=== PATIENT | male | born 1960 | race Caucasian/White ===

== ENCOUNTER 2016-04-09 06:04 | Emergency (ER) | payer MEDICAID ==
[~2016-04-09] VITALS: Ht 172.7 cm; Wt 77.1 kg
[2016-04-09 07:48] LABS: Urine Bilirubin Negative (Negative); Urine Blood Negative /uL (Negative); Urine Color Yellow (Yellow); Urine Glucose Normal (Normal); Urine Ketone Negative (Negative); Urine Nitrite Negative (Negative); Urine RBC <1 /hpf (0 - 3); Urine Urobilinogen Normal (Negative); Urine pH 6.5 (5.0-8.0)
[2016-04-09 07:55] LABS: Basophils # (auto) 0 uL; Basophils % (auto) 0.4 % (0.0-2.0); Eosinophils # (auto) 0 uL; Eosinophils % (auto) 0.4 % (0.0-7.0); Hematocrit 49.3 % (41.0-53.0); Hemoglobin 15.7 g/dL (13.5-17.5); Lymphocytes # (auto) 1.1 uL; Lymphocytes % (auto) 11.4 % (10.0-50.0); Mean Corpuscular Hemoglobin 27.5 pg (28.0-32.0); Mean Corpuscular Hgb Conc. 31.8 g/dL (32.0-36.0); Mean Corpuscular Volume 86.6 fL (80.0-100.0); Mean Platelet Volume 9.3 fL (7.4-10.4); Monocytes # (auto) 0.5 uL; Monocytes % (auto) 5.4 % (0.0-12.0); Neutrophils # (auto) 8.1 uL; Neutrophils % (auto) 82.4 % (37.0-80.0); Platelet Count (auto) 245 10^3/uL (140-450); Red Cell Distribution Width 13.9 % (11.6-16.0); White Blood Cell 9.9 10^3/uL (4.4-10.8)
[2016-04-09 08:24] LABS: Albumin 4.1 g/dL (3.4-5.0); BUN/Creatinine Ratio 14.4; Bilirubin, Total 0.8 mg/dL (0.2-1.0); Calcium 8.6 mg/dL (8.5-10.1); Potassium 4.2 mmol/L (3.5-5.1); Total Protein 8.4 g/dL (6.4-8.2)
[2016-04-09] MEDS ORDERED: SODIUM CHLORIDE 0.9% 1,000 ML IVB ONE (08:33)
[2016-04-09] MEDS ORDERED: METOCLOPRAMIDE HCL 5MG/ml INJ 2ml VIAL IV ONE (08:45)
[2016-04-09] MEDS ORDERED: KETOROLAC TROMETH 30 MG/ML 1ML VIAL IM ONE (08:45)
[2016-04-09 08:54] LABS: Magnesium 2.3 mg/dL (1.6-2.6)
[2016-04-09 10:14] VITALS: BP 151/83
== END 2016-04-09 10:14 | disposition home or self-care (01) ==
LOC: ER 06:15
DX: R10.9 Unspecified abdominal pain (principal); G89.29 Other chronic pain; M54.9 Dorsalgia, unspecified; I10 Essential (primary) hypertension; R59.1 Generalized enlarged lymph nodes; M47.896 Other spondylosis, lumbar region; E78.5 Hyperlipidemia, unspecified; F12.10 Cannabis abuse, uncomplicated
CPT/HCPCS: 36415; 71020; 74176; 80053; 81001; 83690; 83735; 84443; 85025; 93005; 96361; 96374; 96375; 99285; J1885; J2765

== ENCOUNTER 2016-06-29 20:25 | Emergency (ER) | payer MEDICAID ==
[~2016-06-29] VITALS: Ht 172.7 cm; Wt 77.1 kg
[2016-06-29 23:05] LABS: Basophils # (auto) 0.1 uL; Basophils % (auto) 0.6 % (0.0-2.0); Eosinophils # (auto) 0.1 uL; Eosinophils % (auto) 1.2 % (0.0-7.0); Hematocrit 43.4 % (41.0-53.0); Hemoglobin 14.3 g/dL (13.5-17.5); Lymphocytes # (auto) 1.3 uL; Lymphocytes % (auto) 14.8 % (10.0-50.0); Mean Corpuscular Hemoglobin 27.6 pg (28.0-32.0); Mean Corpuscular Hgb Conc. 33.1 g/dL (32.0-36.0); Mean Corpuscular Volume 83.6 fL (80.0-100.0); Mean Platelet Volume 8.8 fL (7.4-10.4); Monocytes # (auto) 0.6 uL; Monocytes % (auto) 6.4 % (0.0-12.0); Neutrophils # (auto) 6.7 uL; Platelet Count (auto) 291 10^3/uL (140-450); Red Cell Distribution Width 14.2 % (11.6-16.0); White Blood Cell 8.7 10^3/uL (4.4-10.8)
[2016-06-29 23:21] LABS: Albumin 3.8 g/dL (3.4-5.0); BUN/Creatinine Ratio 16.3; Calcium 8.8 mg/dL (8.5-10.1); Potassium 4.1 mmol/L (3.5-5.1)
[2016-06-29 23:24] LABS: Bilirubin, Total 1.4 mg/dL (0.2-1.0); Total Protein 8.1 g/dL (6.4-8.2)
[2016-06-30 06:00] VITALS: BP 168/85
== END 2016-06-30 07:48 | disposition home or self-care (01) ==
LOC: ER 20:32
CPT/HCPCS: 36415; 74176; 80053; 82150; 83690; 85025

== ENCOUNTER 2016-07-15 14:04 | Inpatient (IN) | payer MEDICAID ==
[~2016-07-15] VITALS: Ht 172.7 cm; Wt 67.6 kg
[2016-07-15] MEDS ORDERED: SODIUM CHLORIDE 0.9% 1,000 ML IVB ONE (14:42)
[2016-07-15] MEDS ORDERED: ONDANSETRON HCL 4 MG/2 ML VIAL IV ONE (14:45)
[2016-07-15 15:23] LABS: Basophils # (auto) 0 uL; Eosinophils # (auto) 0 uL; Eosinophils % (auto) 0.3 % (0.0-7.0); Hemoglobin 15.4 g/dL (13.5-17.5); Lymphocytes # (auto) 0.5 uL; Lymphocytes % (auto) 4.2 % (10.0-50.0); Mean Corpuscular Hemoglobin 27.8 pg (28.0-32.0); Mean Corpuscular Hgb Conc. 33.6 g/dL (32.0-36.0); Mean Corpuscular Volume 82.8 fL (80.0-100.0); Mean Platelet Volume 9.3 fL (7.4-10.4); Monocytes # (auto) 0.8 uL; Monocytes % (auto) 6.3 % (0.0-12.0); Neutrophils # (auto) 11.5 uL; Neutrophils % (auto) 89.2 % (37.0-80.0); Platelet Count (auto) 349 10^3/uL (140-450); Red Cell Distribution Width 15.8 % (11.6-16.0); White Blood Cell 12.9 10^3/uL (4.4-10.8)
[2016-07-15 15:51] LABS: INR 1.09 (0.9-1.15); Partial Thromboplastin Time 33.6 sec (22.64-33.71); Prothrombin Time 11.8 sec (9.37-12.3)
[2016-07-15 15:52] LABS: Albumin 3.2 g/dL (3.4-5.0); BUN/Creatinine Ratio 17.7; Bilirubin, Total 10.1 mg/dL (0.2-1.0); Calcium 9.6 mg/dL (8.5-10.1); Magnesium 2.9 mg/dL (1.6-2.6); Potassium 4.7 mmol/L (3.5-5.1)
[2016-07-15] MEDS ORDERED: MORPHINE SULF INJ 2 MG/ML SYRINGE 1ML IV ONE (16:15)
[2016-07-15] MEDS ORDERED: MORPHINE SULF INJ 2 MG/ML SYRINGE 1ML IV PRN (19:30)
[2016-07-15] MEDS ORDERED: cefTRIAXone 1GM/50ML D5W 50 ML IV ONE (19:30)
[2016-07-15] MEDS ORDERED: NITROGLYCERIN 0.4 MG SL TAB SL PRN (19:30)
[2016-07-15] MEDS: SODIUM CHLORIDE 0.9% 1,000 ML IV SCH (20:10)
[2016-07-15] MEDS: LABETALOL HCL 5 MG/ML 4ML SYRINGE IV PRN (20:26)
[2016-07-15 20:35] LABS: Urine Blood TRACE /uL (Negative); Urine Color Yellow (Yellow); Urine Glucose Normal (Normal); Urine Mucus FEW (None Seen); Urine Nitrite Negative (Negative); Urine RBC <1 /hpf (0 - 3); Urine Squamous Epithelial Cell FEW /hpf (<5); Urine Urobilinogen Normal (Negative); Urine pH 5.5 (5.0-8.0)
[2016-07-15 20:46] LABS: Urine Bilirubin Negative (Negative); Urine Ketone 1+ (Negative)
[2016-07-15 21:10] VITALS: BP 153/99
[2016-07-15] MEDS: FAMOTIDINE (10MG/ML) 2ML VL IV SCH (21:28)
[2016-07-15] MEDS: metroNIDAZOLE 500MG/100ML 100 ML IV SCH (21:28)
[2016-07-16] MEDS: MORPHINE SULF INJ 2 MG/ML SYRINGE 1ML IV PRN (02:19)
[2016-07-16] MEDS: ONDANSETRON HCL 4 MG/2 ML VIAL IV PRN (02:20)
[2016-07-16 05:00] VITALS: BP 144/95
[2016-07-16] MEDS: SODIUM CHLORIDE 0.9% 1,000 ML IV SCH ×3 (05:17→20:19)
[2016-07-16] MEDS: metroNIDAZOLE 500MG/100ML 100 ML IV SCH ×3 (05:18→22:09)
[2016-07-16 05:36] LABS: Basophils # (auto) 0 uL; Basophils % (auto) 0.1 % (0.0-2.0); Eosinophils # (auto) 0.1 uL; Eosinophils % (auto) 1.2 % (0.0-7.0); Hematocrit 40.1 % (41.0-53.0); Hemoglobin 13.3 g/dL (13.5-17.5); Lymphocytes # (auto) 0.5 uL; Lymphocytes % (auto) 4.4 % (10.0-50.0); Mean Corpuscular Hgb Conc. 33.3 g/dL (32.0-36.0); Mean Corpuscular Volume 84.2 fL (80.0-100.0); Mean Platelet Volume 9.4 fL (7.4-10.4); Monocytes # (auto) 0.8 uL; Monocytes % (auto) 6.9 % (0.0-12.0); Neutrophils # (auto) 10.7 uL; Neutrophils % (auto) 87.4 % (37.0-80.0); Platelet Count (auto) 310 10^3/uL (140-450); Red Cell Distribution Width 15.7 % (11.6-16.0); White Blood Cell 12.2 10^3/uL (4.4-10.8)
[2016-07-16 05:58] LABS: Albumin 2.7 g/dL (3.4-5.0); BUN/Creatinine Ratio 19.8; Bilirubin, Total 6.8 mg/dL (0.2-1.0); Calcium 8.5 mg/dL (8.5-10.1); Potassium 5.2 mmol/L (3.5-5.1); Total Protein 7.1 g/dL (6.4-8.2)
[2016-07-16 09:00] VITALS: BP 137/92
[2016-07-16] MEDS: FAMOTIDINE (10MG/ML) 2ML VL IV SCH ×2 (09:23→22:09)
[2016-07-16 13:00] VITALS: BP 152/98
[2016-07-16 17:00] VITALS: BP 148/95
[2016-07-16] MEDS: LABETALOL HCL 5 MG/ML 4ML SYRINGE IV PRN (20:46)
[2016-07-16 21:02] VITALS: BP 169/92
[2016-07-16] MEDS: cefTRIAXone 1GM/50ML D5W 50 ML IV SCH (22:06)
[2016-07-17] MEDS: ONDANSETRON HCL 4 MG/2 ML VIAL IV PRN ×4 (01:08→22:58)
[2016-07-17] MEDS: MORPHINE SULF INJ 2 MG/ML SYRINGE 1ML IV PRN ×3 (01:08→22:57)
[2016-07-17] MEDS: SODIUM CHLORIDE 0.9% 1,000 ML IV SCH ×2 (04:39→10:07)
[2016-07-17 05:00] VITALS: BP 142/84
[2016-07-17] MEDS: metroNIDAZOLE 500MG/100ML 100 ML IV SCH ×3 (05:37→22:57)
[2016-07-17 07:37] VITALS: BP 131/85
[2016-07-17 08:00] VITALS: BP 131/85
[2016-07-17] MEDS: FAMOTIDINE (10MG/ML) 2ML VL IV SCH ×2 (09:33→22:57)
[2016-07-17 12:32] VITALS: BP 147/85
[2016-07-17 16:04] VITALS: BP 156/83
[2016-07-17] MEDS ORDERED: D5W/SOD CHL 0.45%/KCL 20MEQ 1,000 ML IV SCH (16:15)
[2016-07-17] MEDS: D5W/SOD CHL 0.45%/KCL 20MEQ 1,000 ML IV SCH (17:19)
[2016-07-17] MEDS: LABETALOL HCL 5 MG/ML 4ML SYRINGE IV PRN (19:01)
[2016-07-17 21:58] VITALS: BP 155/90
[2016-07-17] MEDS: cefTRIAXone 1GM/50ML D5W 50 ML IV SCH (22:57)
[2016-07-18] MEDS: D5W/SOD CHL 0.45%/KCL 20MEQ 1,000 ML IV SCH ×4 (00:15→20:00)
[2016-07-18] MEDS: ONDANSETRON HCL 4 MG/2 ML VIAL IV PRN ×3 (03:45→21:54)
[2016-07-18] MEDS: MORPHINE SULF INJ 2 MG/ML SYRINGE 1ML IV PRN ×2 (03:45→21:54)
[2016-07-18] MEDS: metroNIDAZOLE 500MG/100ML 100 ML IV SCH ×3 (05:47→21:53)
[2016-07-18 05:58] VITALS: BP 142/91
[2016-07-18 06:23] LABS: Albumin 2.6 g/dL (3.4-5.0); BUN/Creatinine Ratio 14.5; Calcium 8.5 mg/dL (8.5-10.1); Potassium 4.2 mmol/L (3.5-5.1)
[2016-07-18 06:27] LABS: Bilirubin, Total 7.3 mg/dL (0.2-1.0); Total Protein 6.5 g/dL (6.4-8.2)
[2016-07-18 06:29] LABS: Basophils # (auto) 0.1 uL; Eosinophils # (auto) 0.2 uL; Eosinophils % (auto) 3.9 % (0.0-7.0); Hematocrit 36.7 % (41.0-53.0); Hemoglobin 12.1 g/dL (13.5-17.5); Lymphocytes # (auto) 0.5 uL; Lymphocytes % (auto) 7.8 % (10.0-50.0); Mean Corpuscular Hemoglobin 28.1 pg (28.0-32.0); Mean Corpuscular Volume 85.3 fL (80.0-100.0); Mean Platelet Volume 10.1 fL (7.4-10.4); Monocytes # (auto) 0.7 uL; Monocytes % (auto) 11.5 % (0.0-12.0); Neutrophils # (auto) 4.9 uL; Neutrophils % (auto) 75.8 % (37.0-80.0); Platelet Count (auto) 305 10^3/uL (140-450); Red Cell Distribution Width 15.7 % (11.6-16.0); White Blood Cell 6.4 10^3/uL (4.4-10.8)
[2016-07-18 08:00] VITALS: BP 137/87
[2016-07-18 09:00] VITALS: BP 137/87
[2016-07-18] MEDS ORDERED: GASTROGRAFIN 120 ML SOL ONE (09:02)
[2016-07-18] MEDS ORDERED: EZ-GAS II GRANULES (RADIOLOGY USE) PO ONE (09:03)
[2016-07-18] MEDS: FAMOTIDINE (10MG/ML) 2ML VL IV SCH ×2 (11:27→21:53)
[2016-07-18 13:00] VITALS: BP 158/95
[2016-07-18 17:00] VITALS: BP 168/92
[2016-07-18] MEDS ORDERED: TPN PER PHARMACY 0 ML IV SCH (17:45)
[2016-07-18] MEDS ORDERED: AMINO ACID INFUSION IN D10W 1,000 ML IV ONE (20:00)
[2016-07-18] MEDS: cefTRIAXone 1GM/50ML D5W 50 ML IV SCH (21:53)
[2016-07-18 22:00] VITALS: BP 154/98
[2016-07-19] MEDS ORDERED: DEXTROSE (50%) 50ML SYRG IV SCH
[2016-07-19] MEDS: ONDANSETRON HCL 4 MG/2 ML VIAL IV PRN ×4 (02:54→22:32)
[2016-07-19] MEDS: MORPHINE SULF INJ 2 MG/ML SYRINGE 1ML IV PRN ×4 (02:54→22:31)
[2016-07-19] MEDS: metroNIDAZOLE 500MG/100ML 100 ML IV SCH (05:53)
[2016-07-19] MEDS: ACCU-CHEK COMFORT CURVE STRIP VI SCH ×5 (05:54→23:46)
[2016-07-19 06:00] VITALS: BP 138/90
[2016-07-19] MEDS: InsuLIN REG 1unit/0.01ml Soln (100units/ml) SC SCH ×5 (06:00→23:46)
[2016-07-19 07:57] LABS: Albumin 2.6 g/dL (3.4-5.0); BUN/Creatinine Ratio 10.4; Bilirubin, Total 7.8 mg/dL (0.2-1.0); Calcium 8.3 mg/dL (8.5-10.1); Magnesium 2.2 mg/dL (1.6-2.6); Phosphorus 2.2 mg/dL (2.5-4.90); Potassium 4.1 mmol/L (3.5-5.1); Total Protein 6.5 g/dL (6.4-8.2)
[2016-07-19 08:00] VITALS: BP_SYST 124; BP_SYST 141; BP_DIAS 82; BP_DIAS 86
[2016-07-19] MEDS: D5W/SOD CHL 0.45%/KCL 20MEQ 1,000 ML IV SCH ×2 (08:30→21:16)
[2016-07-19] MEDS ORDERED: SODIUM PHOSP 20MEQ(15MMOL) IN NS 100 ML IV ONE (08:45)
[2016-07-19] MEDS: FAMOTIDINE (10MG/ML) 2ML VL IV SCH ×2 (10:29→22:31)
[2016-07-19] MEDS ORDERED: ENOXAPARIN SOD 40 MG/0.4 ML SYRINGE SC ONE (11:15)
[2016-07-19 12:00] VITALS: BP 148/90
[2016-07-19 17:00] VITALS: BP 158/98
[2016-07-19] MEDS ORDERED: CLINIMIX PER PHARMACY IV NR ×5 (20:00)
[2016-07-19] MEDS: LABETALOL HCL 5 MG/ML 4ML SYRINGE IV PRN (21:08)
[2016-07-19 22:00] VITALS: BP 163/108
[2016-07-20] VITALS (7 sets, daily range): BP systolic 141–165; BP diastolic 87–103
[2016-07-20] MEDS: MORPHINE SULF INJ 2 MG/ML SYRINGE 1ML IV PRN ×6 (02:54→22:55)
[2016-07-20] MEDS: ONDANSETRON HCL 4 MG/2 ML VIAL IV PRN ×6 (02:54→22:56)
[2016-07-20] MEDS: ACCU-CHEK COMFORT CURVE STRIP VI SCH ×3 (05:39→17:08)
[2016-07-20] MEDS: InsuLIN REG 1unit/0.01ml Soln (100units/ml) SC SCH ×3 (05:40→17:08)
[2016-07-20 06:50] LABS: Albumin 2.6 g/dL (3.4-5.0); BUN/Creatinine Ratio 9.5; Bilirubin, Total 8.3 mg/dL (0.2-1.0); Calcium 8.4 mg/dL (8.5-10.1); Phosphorus 3.3 mg/dL (2.5-4.90); Potassium 3.8 mmol/L (3.5-5.1)
[2016-07-20] MEDS: FAMOTIDINE (10MG/ML) 2ML VL IV SCH ×2 (09:44→21:16)
[2016-07-20] MEDS ORDERED: ENOXAPARIN SOD 40 MG/0.4 ML SYRINGE SC SCH (10:00)
[2016-07-20] MEDS ORDERED: hydrALAZINE HCL 20 MG/ML VL IV PRN (15:30)
[2016-07-20] MEDS ORDERED: CLINIMIX PER PHARMACY IV NR ×8 (20:00)
[2016-07-20] MEDS: D5W/SOD CHL 0.45%/KCL 20MEQ 1,000 ML IV SCH (20:10)
== END 2016-07-20 23:05 | disposition short-term general hospital (02) | DRG 720 ==
LOC: EDBD 14:04 → ER 14:13 → TELE-EAST 14:14 → EAST 07-19 14:48
PROVIDERS: ADMIT Internal Medicine; ATTEND Hospitalist
DX: A41.9 Sepsis, unspecified organism (principal); K56.60 Unspecified intestinal obstruction; K85.90 Acute pancreatitis without necrosis or infection, unspecified; K85.00 Idiopathic acute pancreatitis without necrosis or infection; E44.0 Moderate protein-calorie malnutrition; C25.0 Malignant neoplasm of head of pancreas; N18.4 Chronic kidney disease, stage 4 (severe); K83.1 Obstruction of bile duct; E87.1 Hypo-osmolality and hyponatremia; E83.41 Hypermagnesemia; K31.9 Disease of stomach and duodenum, unspecified; K63.9 Disease of intestine, unspecified; R59.1 Generalized enlarged lymph nodes; E86.0 Dehydration; I12.9 Hypertensive chronic kidney disease with stage 1 through stage 4 chronic kidney disease, or unspecified chronic kidney disease; E78.00 Pure hypercholesterolemia, unspecified; Z80.1 Family history of malignant neoplasm of trachea, bronchus and lung; Z82.49 Family history of ischemic heart disease and other diseases of the circulatory system; Z81.2 Family history of tobacco abuse and dependence; Z68.22 Body mass index [BMI] 22.0-22.9, adult
CPT/HCPCS: 36415; 71010; 74176; 74181; 80053; 81001; 82040; 82150; 82378; 82962; 83605; 83690; 83735; 84100; 84478; 85025; 85610; 85730; 86301; 86304; 87040; 87045; 87086; 87493; 87899; 93005; 93306; 94761; 96361; 96365; 96375; J0696; J1815; J2405; J3490; J7131

== ENCOUNTER 2016-08-21 07:32 | Emergency (ER) | payer MEDICAID ==
[~2016-08-21] VITALS: Ht 172.7 cm; Wt 77.1 kg
[2016-08-21] MEDS ORDERED: SODIUM CHLORIDE 0.9% 1,000 ML IV ONE ×2 (07:54)
[2016-08-21] MEDS ORDERED: HYDROmorphone HCL 2 MG/ML VL IV ONE ×2 (08:15→10:00)
[2016-08-21] MEDS ORDERED: ONDANSETRON HCL 4 MG/2 ML VIAL IV ONE (08:15)
[2016-08-21 09:11] LABS: CONDITION Y; Hematocrit 29.4 % (41.0-53.0); Hemoglobin 9.9 g/dL (13.5-17.5); Mean Corpuscular Hemoglobin 27.6 pg (28.0-32.0); Mean Corpuscular Hgb Conc. 33.5 g/dL (32.0-36.0); Mean Corpuscular Volume 82.4 fL (80.0-100.0); Platelet Count (auto) 425 10^3/uL (140-450); Red Cell Distribution Width 16.3 % (11.6-16.0); SUSPECT SEE PRINTOUT; White Blood Cell 17.1 10^3/uL (4.4-10.8)
[2016-08-21 09:13] LABS: Metamyelocytes % 0; Myelocytes % 0; Promyelocytes % 0; Reactive Lymphocytes 0
[2016-08-21 09:23] LABS: INR 1.01 (0.9-1.15); Partial Thromboplastin Time 32.3 sec (22.64-33.71)
[2016-08-21 09:24] LABS: Platelet Estimate Adequate
[2016-08-21 09:34] LABS: Albumin 1.9 g/dL (3.4-5.0); Amylase 35 U/L (25-115); Anion Gap 8 (5-15); Aspartate Aminotransferase 24 U/L (15-37); Blood Urea Nitrogen 11 mg/dL (7-18); Carbon Dioxide 28 mmol/L (21-32); Chloride 107 mmol/L (98-107); GFR African American 80 mL/min; GFR Non-African American 66 mL/min; Glucose 105 mg/dL (74-106); Potassium 4.5 mmol/L (3.5-5.1); Sodium 143 mmol/L (136-145)
[2016-08-21 09:42] LABS: Alkaline Phosphatase 506 U/L (45-117); Bilirubin, Total 0.9 mg/dL (0.2-1.0); Total Protein 6.7 g/dL (6.4-8.2)
[2016-08-21 10:14] VITALS: BP 139/92
== END 2016-08-21 10:55 | disposition home or self-care (01) ==
LOC: EDBD 07:32 → ER 07:35
DX: G89.29 Other chronic pain (principal); M54.9 Dorsalgia, unspecified; I10 Essential (primary) hypertension; F12.10 Cannabis abuse, uncomplicated
CPT/HCPCS: 36415; 71010; 74176; 80053; 82150; 83605; 83690; 84484; 85007; 85027; 85610; 85730; 87040; 93005; 96361; 96374; 96375; 96376; 99285; J1170; J2405; J7030

== ENCOUNTER 2016-09-12 15:44 | Inpatient (IN) | payer MEDICAID ==
[~2016-09-12] VITALS: Ht 172.7 cm; Wt 67.7 kg
[2016-09-12] MEDS ORDERED: SODIUM CHLORIDE 0.9% 1,000 ML IVB ONE ×2 (17:10→20:13)
[2016-09-12 17:40] LABS: CONDITION Y; Hematocrit 34.7 % (41.0-53.0); Hemoglobin 11.5 g/dL (13.5-17.5); Mean Corpuscular Hemoglobin 27.4 pg (28.0-32.0); Mean Corpuscular Hgb Conc. 33.2 g/dL (32.0-36.0); Mean Corpuscular Volume 82.6 fL (80.0-100.0); Platelet Count (auto) 493 10^3/uL (140-450); Red Cell Distribution Width 17.3 % (11.6-16.0); SUSPECT SEE PRINTOUT; White Blood Cell 28.9 10^3/uL (4.4-10.8)
[2016-09-12 17:46] LABS: Metamyelocytes % 0; Myelocytes % 0; Promyelocytes % 0; Reactive Lymphocytes 0
[2016-09-12 17:50] LABS: Magnesium 2.3 mg/dL (1.6-2.6)
[2016-09-12 17:53] LABS: Albumin 2.9 g/dL (3.4-5.0); BUN/Creatinine Ratio 23.7; Calcium 9.2 mg/dL (8.5-10.1); Potassium 3.8 mmol/L (3.5-5.1)
[2016-09-12 17:56] LABS: Bilirubin, Total 0.8 mg/dL (0.2-1.0)
[2016-09-12 17:57] LABS: INR 1.02 (0.9-1.15); Partial Thromboplastin Time 25.8 sec (22.64-33.71); Prothrombin Time 11.1 sec (9.37-12.3)
[2016-09-12 18:10] LABS: Platelet Estimate Increased
[2016-09-12] MEDS ORDERED: HYDROmorphone HCL 2 MG/ML VL IV ONE (18:30)
[2016-09-12] MEDS ORDERED: ONDANSETRON HCL 4 MG/2 ML VIAL IV ONE (18:30)
[2016-09-12] MEDS ORDERED: metroNIDAZOLE 500MG/100ML 100 ML IV ONE (20:15)
[2016-09-12] MEDS: SODIUM CHLORIDE 0.9% 1,000 ML IV SCH (22:16)
[2016-09-12] MEDS ORDERED: ACETAMINOPHEN 325 MG TAB PO PRN (22:30)
[2016-09-12] MEDS ORDERED: cefTRIAXone 1GM/50ML D5W 50 ML IV ONE (22:30)
[2016-09-12] MEDS ORDERED: predniSONE 20 MG TAB PO ONE (22:30)
[2016-09-12] MEDS ORDERED: TEMAZEPAM 15 MG CAP PO PRN (22:30)
[2016-09-12] MEDS: PRAVASTATIN SODIUM 20 MG TAB PO SCH (22:31)
[2016-09-12] MEDS: SENNA 8.6 MG TAB PO SCH (22:31)
[2016-09-12] MEDS: ONDANSETRON HCL 4 MG/2 ML VIAL IV PRN (22:57)
[2016-09-12] MEDS: HYDROmorphone HCL 2 MG/ML VL IV PRN (22:57)
[2016-09-13] MEDS: HYDROmorphone HCL 2 MG/ML VL IV PRN ×5 (03:28→20:15)
[2016-09-13] MEDS: ONDANSETRON HCL 4 MG/2 ML VIAL IV PRN ×5 (03:28→20:16)
[2016-09-13] MEDS: metroNIDAZOLE 500MG/100ML 100 ML IV SCH ×3 (05:33→21:51)
[2016-09-13] MEDS: cefTRIAXone 1GM/50ML D5W 50 ML IV SCH (09:00)
[2016-09-13] MEDS: predniSONE 20 MG TAB PO SCH (10:00)
[2016-09-13] MEDS: LISINOPRIL 10 MG TAB PO SCH (10:00)
[2016-09-13] MEDS: SODIUM CHLORIDE 0.9% 1,000 ML IV SCH ×2 (10:46→21:52)
[2016-09-13 17:51] VITALS: BP 119/70
[2016-09-13] MEDS: SENNA 8.6 MG TAB PO SCH (21:45)
[2016-09-13] MEDS: PRAVASTATIN SODIUM 20 MG TAB PO SCH (21:46)
[2016-09-13 22:00] VITALS: BP 145/86
[2016-09-13] MEDS ORDERED: GABA-497 PO (23:43)
[2016-09-13] MEDS ORDERED: PRED1SOL29 PO (23:43)
[2016-09-13] MEDS ORDERED: SENN8.6C PO (23:43)
[2016-09-13] MEDS ORDERED: [UNRECOGNIZED DRUG - CODE] PO (23:43)
[2016-09-13] MEDS ORDERED: ONDA4TAB5 PO (23:43)
[2016-09-13] MEDS ORDERED: [UNRECOGNIZED DRUG - CODE] SC (23:43)
[2016-09-13] MEDS ORDERED: LEVO-28 PO (23:43)
[2016-09-14] MEDS: HYDROmorphone HCL 2 MG/ML VL IV PRN ×6 (00:14→20:21)
[2016-09-14] MEDS: ONDANSETRON HCL 4 MG/2 ML VIAL IV PRN ×6 (00:14→20:21)
[2016-09-14 05:00] VITALS: BP 144/80
[2016-09-14 05:52] LABS: CONDITION Y; DEFINITIVE SEE PRINTOUT; Hematocrit 28.9 % (41.0-53.0); Hemoglobin 9.4 g/dL (13.5-17.5); Mean Corpuscular Hemoglobin 27.3 pg (28.0-32.0); Mean Corpuscular Hgb Conc. 32.6 g/dL (32.0-36.0); Mean Corpuscular Volume 83.7 fL (80.0-100.0); Mean Platelet Volume 7.8 fL (7.4-10.4); Platelet Count (auto) 290 10^3/uL (140-450); Red Cell Distribution Width 17.6 % (11.6-16.0); SUSPECT SEE PRINTOUT
[2016-09-14 06:02] LABS: White Blood Cell 38.7 10^3/uL (4.4-10.8)
[2016-09-14 06:03] LABS: Metamyelocytes % 0; Myelocytes % 0; Promyelocytes % 0; Reactive Lymphocytes 0
[2016-09-14] MEDS: HYDROcodone-ACET 5/325MG TAB PO PRN ×4 (06:06→18:35)
[2016-09-14] MEDS: metroNIDAZOLE 500MG/100ML 100 ML IV SCH ×3 (06:07→21:16)
[2016-09-14 06:22] LABS: Magnesium 2.3 mg/dL (1.6-2.6); Phosphorus 3.2 mg/dL (2.5-4.90); Potassium 3.3 mmol/L (3.5-5.1)
[2016-09-14 06:40] LABS: Anisocytosis Slight; Hypersegmented Neutrophils Present; Platelet Estimate Adequate
[2016-09-14 08:00] VITALS: BP 153/79
[2016-09-14 09:00] VITALS: BP 153/79
[2016-09-14] MEDS: LISINOPRIL 10 MG TAB PO SCH (10:00)
[2016-09-14] MEDS: predniSONE 20 MG TAB PO SCH (10:11)
[2016-09-14] MEDS: cefTRIAXone 1GM/50ML D5W 50 ML IV SCH (10:12)
[2016-09-14] MEDS: SODIUM CHLORIDE 0.9% 1,000 ML IV SCH (12:34)
[2016-09-14 12:55] VITALS: BP 136/78
[2016-09-14 17:00] VITALS: BP 145/87
[2016-09-14 18:00] VITALS: BP 133/88
[2016-09-14] MEDS: SENNA 8.6 MG TAB PO SCH (21:17)
[2016-09-14] MEDS: PRAVASTATIN SODIUM 20 MG TAB PO SCH (21:17)
[2016-09-14] MEDS: CHOLESTYRAMINE 4 GM POWDER GT SCH (23:00)
[2016-09-15] MEDS: ONDANSETRON HCL 4 MG/2 ML VIAL IV PRN ×5 (00:37→21:22)
[2016-09-15] MEDS: HYDROmorphone HCL 2 MG/ML VL IV PRN ×6 (00:38→21:22)
[2016-09-15] MEDS: SODIUM CHLORIDE 0.9% 1,000 ML IV SCH ×3 (02:33→22:46)
[2016-09-15] MEDS: metroNIDAZOLE 500MG/100ML 100 ML IV SCH ×3 (05:14→22:42)
[2016-09-15 05:53] VITALS: BP 125/72
[2016-09-15 07:55] VITALS: BP 125/79
[2016-09-15 08:00] VITALS: BP 125/79
[2016-09-15] MEDS: cefTRIAXone 1GM/50ML D5W 50 ML IV SCH (09:29)
[2016-09-15] MEDS: predniSONE 20 MG TAB PO SCH (09:29)
[2016-09-15] MEDS: LISINOPRIL 10 MG TAB PO SCH (09:35)
[2016-09-15] MEDS: CHOLESTYRAMINE 4 GM POWDER GT SCH ×3 (11:00→23:39)
[2016-09-15] MEDS: HYDROcodone-ACET 5/325MG TAB PO PRN ×2 (11:15→20:02)
[2016-09-15 11:55] VITALS: BP 135/78
[2016-09-15 17:08] VITALS: BP 122/79
[2016-09-15] MEDS: PRAVASTATIN SODIUM 20 MG TAB PO SCH (21:23)
[2016-09-15] MEDS: SENNA 8.6 MG TAB PO SCH (21:23)
[2016-09-15 22:00] VITALS: BP 131/75
[2016-09-16] MEDS: HYDROmorphone HCL 2 MG/ML VL IV PRN ×6 (00:54→20:27)
[2016-09-16] MEDS: ONDANSETRON HCL 4 MG/2 ML VIAL IV PRN ×5 (00:55→20:27)
[2016-09-16 05:00] VITALS: BP 131/74
[2016-09-16] MEDS: metroNIDAZOLE 500MG/100ML 100 ML IV SCH ×4 (05:52→22:41)
[2016-09-16 08:00] VITALS: BP 129/80
[2016-09-16] MEDS: cefTRIAXone 1GM/50ML D5W 50 ML IV SCH (08:21)
[2016-09-16 08:45] VITALS: BP 129/80
[2016-09-16] MEDS: CHOLESTYRAMINE 4 GM POWDER GT SCH ×2 (11:00→22:50)
[2016-09-16] MEDS: predniSONE 20 MG TAB PO SCH (12:53)
[2016-09-16 12:55] VITALS: BP 130/79
[2016-09-16] MEDS: LISINOPRIL 10 MG TAB PO SCH (12:56)
[2016-09-16] MEDS: SODIUM CHLORIDE 0.9% 1,000 ML IV SCH (13:46)
[2016-09-16] MEDS: HYDROcodone-ACET 5/325MG TAB PO PRN ×2 (14:50→23:06)
[2016-09-16 17:00] VITALS: BP 122/72
[2016-09-16 22:00] VITALS: BP 124/73
[2016-09-16] MEDS: PRAVASTATIN SODIUM 20 MG TAB PO SCH ×2 (22:00→22:41)
[2016-09-16] MEDS: SENNA 8.6 MG TAB PO SCH ×2 (22:00→22:41)
[2016-09-17] MEDS: HYDROmorphone HCL 2 MG/ML VL IV PRN ×6 (00:51→21:28)
[2016-09-17] MEDS: SODIUM CHLORIDE 0.9% 1,000 ML IV SCH (02:35)
[2016-09-17 05:00] VITALS: BP 134/79
[2016-09-17] MEDS: metroNIDAZOLE 500MG/100ML 100 ML IV SCH ×4 (06:00→22:00)
[2016-09-17 07:32] LABS: Basophils # (auto) 0 uL; Basophils % (auto) 0.3 % (0.0-2.0); CONDITION Y; DEFINITIVE SEE PRINTOUT; Eosinophils # (auto) 0.1 uL; Eosinophils % (auto) 2.7 % (0.0-7.0); Lymphocytes # (auto) 0.4 uL; Lymphocytes % (auto) 12.9 % (10.0-50.0); Mean Corpuscular Hemoglobin 27.3 pg (28.0-32.0); Mean Corpuscular Hgb Conc. 33.4 g/dL (32.0-36.0); Mean Corpuscular Volume 81.9 fL (80.0-100.0); Mean Platelet Volume 7.7 fL (7.4-10.4); Monocytes # (auto) 0 uL; Monocytes % (auto) 0.6 % (0.0-12.0); Neutrophils # (auto) 2.5 uL; Neutrophils % (auto) 83.5 % (37.0-80.0); Platelet Count (auto) 151 10^3/uL (140-450); SUSPECT SEE PRINTOUT
[2016-09-17 07:58] LABS: Albumin 2.4 g/dL (3.4-5.0); BUN/Creatinine Ratio 23.5; Bilirubin, Total 0.6 mg/dL (0.2-1.0); Calcium 7.2 mg/dL (8.5-10.1); Potassium 3.1 mmol/L (3.5-5.1); Total Protein 5.5 g/dL (6.4-8.2)
[2016-09-17 09:00] VITALS: BP 124/81
[2016-09-17] MEDS: cefTRIAXone 1GM/50ML D5W 50 ML IV SCH (09:27)
[2016-09-17] MEDS: predniSONE 20 MG TAB PO SCH (09:27)
[2016-09-17] MEDS: LISINOPRIL 10 MG TAB PO SCH (09:28)
[2016-09-17] MEDS: CHOLESTYRAMINE 4 GM POWDER GT SCH (11:00)
[2016-09-17 13:00] VITALS: BP_SYST 124; BP_SYST 148; BP_DIAS 78; BP_DIAS 81
[2016-09-17 17:00] VITALS: BP 148/78
[2016-09-17 22:00] VITALS: BP 122/76
[2016-09-17] MEDS: PRAVASTATIN SODIUM 20 MG TAB PO SCH (22:00)
[2016-09-17] MEDS: SENNA 8.6 MG TAB PO SCH (23:09)
[2016-09-18] MEDS: HYDROmorphone HCL 2 MG/ML VL IV PRN ×3 (02:09→09:57)
[2016-09-18 05:00] VITALS: BP 125/81
[2016-09-18] MEDS: metroNIDAZOLE 500MG/100ML 100 ML IV SCH ×2 (06:00→14:00)
[2016-09-18 08:30] VITALS: BP 122/70
[2016-09-18] MEDS: cefTRIAXone 1GM/50ML D5W 50 ML IV SCH (09:54)
[2016-09-18] MEDS: LISINOPRIL 10 MG TAB PO SCH (10:01)
[2016-09-18] MEDS: predniSONE 20 MG TAB PO SCH (10:01)
[2016-09-18 12:30] VITALS: BP 117/75
== END 2016-09-18 14:46 | disposition home or self-care (01) | DRG 249 ==
LOC: EDBD 15:44 → ER 15:51 → OVERFLOW 15:52 → TELE-E-ADS 09-13 08:26 → WEST WING 09-13 16:49
PROVIDERS: ADMIT Internal Medicine; ATTEND Hospitalist
DX: K52.9 Noninfective gastroenteritis and colitis, unspecified (principal); J90 Pleural effusion, not elsewhere classified; C85.90 Non-Hodgkin lymphoma, unspecified, unspecified site; R65.10 Systemic inflammatory response syndrome (SIRS) of non-infectious origin without acute organ dysfunction; N28.1 Cyst of kidney, acquired; F12.90 Cannabis use, unspecified, uncomplicated; F41.9 Anxiety disorder, unspecified; R59.1 Generalized enlarged lymph nodes; G89.29 Other chronic pain; I10 Essential (primary) hypertension; J98.11 Atelectasis; Z82.49 Family history of ischemic heart disease and other diseases of the circulatory system; Z92.21 Personal history of antineoplastic chemotherapy
CPT/HCPCS: 36415; 71010; 74176; 80048; 80053; 82150; 83605; 83690; 83735; 84100; 85007; 85025; 85027; 85610; 85730; 87040; 87045; 87493; 87899; 93005; 94761; 96361; 96365; 96375; J0696; J2405; J3490

== ENCOUNTER 2021-01-01 01:24 | Inpatient (IN) | payer MEDICAID ==
[~2021-01-01] VITALS: Ht 172.7 cm; Wt 70.8 kg
[~2021-01-01 01:24] MED LIST: ACYC-161 PO; BUSP15TA60 PO; GABA300C11 PO; MORP1TAB12 PO; MORP1TAB14 PO; ONDA-101 SL; PANT1INJ3 PO; SENN-83 PO
[2021-01-01 03:07] LABS: Basophils # (auto) 0 10 ^3/uL (0-0.2); Basophils % (auto) 0.6 % (0.0-2.0); Eosinophils # (auto) 0 10 ^3/uL (0-0.8); Hematocrit 51.9 % (41.0-53.0); Hemoglobin 17.7 g/dL (13.5-17.5); Lymphocytes # (auto) 0.7 10 ^3/uL (0.4-5.4); Mean Corpuscular Hemoglobin 29.9 pg (28.0-32.0); Mean Corpuscular Hgb Conc. 34.1 g/dL (32.0-36.0); Mean Corpuscular Volume 87.6 fL (80.0-100.0); Monocytes # (auto) 0.4 10 ^3/uL (0-1.3); Monocytes % (auto) 7.8 % (0.0-12.0); Neutrophils # (auto) 4.6 10 ^3/uL (1.6-8.6); Neutrophils % (auto) 79.6 % (37.0-80.0); Nucleated Red Blood Cells % 0.1 %; Red Blood Cells 5.92 10^6/uL (4.5-5.90); White Blood Cell 5.7 10^3/uL (4.4-10.8)
[2021-01-01 03:31] LABS: Albumin 3.1 g/dL (3.4-5.0); BUN/Creatinine Ratio 16.9; Calcium 8.4 mg/dL (8.5-10.1); Magnesium 2.5 mg/dL (1.6-2.6)
[2021-01-01 03:34] LABS: Total Protein 7.9 g/dL (6.4-8.2)
[2021-01-01 03:35] LABS: INR 1.01 (0.9-1.15); Partial Thromboplastin Time 35.2 sec (23.6-33.0)
[2021-01-01 04:31] LABS: Potassium 5.2 mmol/L (3.5-5.1)
[2021-01-01] MEDS ORDERED: HYDROmorphone HCL 2 MG/ML VL IV ONE (06:00)
[2021-01-01] MEDS ORDERED: SODIUM CHLORIDE 0.9% 1,000 ML IV ONE (06:00)
[2021-01-01] MEDS ORDERED: ONDANSETRON HCL 4 MG/2 ML VIAL IV ONE (06:00)
[2021-01-01] MEDS ORDERED: DexAMETHasone SOD PHOS 10MG/1ML VIAL INJ IV ONE (06:00)
[2021-01-01] MEDS ORDERED: AZITHROMYCIN 500MG/ 250ML 250 ML IV ONE (06:00)
[2021-01-01] MEDS ORDERED: ACETAMINOPHEN 500 MG TAB PO PRN (07:00)
[2021-01-01] MEDS ORDERED: HYDROcodone-ACET 5/325MG TAB PO PRN (07:00)
[2021-01-01] MEDS ORDERED: DOCUSATE SOD 100 MG CAP PO PRN (07:00)
[2021-01-01] MEDS: ALBUTEROL SULF HFA 90MCG INH 200DOSE IN SCH (07:19)
[2021-01-01] MEDS: BUDESONIDE (INHALATION) 180 MCG IH IN SCH ×3 (07:19→22:01)
[2021-01-01] MEDS: ALBUTEROL SULF HFA 90MCG INH 200DOSE IN PRN ×2 (07:30→22:01)
[2021-01-01] MEDS ORDERED: NITROGLYCERIN 0.4 MG SL TAB SL PRN (07:45)
[2021-01-01] MEDS ORDERED: MORPHINE SULFATE INJECTION 2 MG/ML SYRG IV PRN (07:45)
[2021-01-01 07:46] LABS: Basophils # (auto) 0.1 10 ^3/uL (0-0.2); Basophils % (auto) 1.1 % (0.0-2.0); Eosinophils # (auto) 0 10 ^3/uL (0-0.8); Hematocrit 45.6 % (41.0-53.0); Hemoglobin 15.5 g/dL (13.5-17.5); Lymphocytes # (auto) 0.8 10 ^3/uL (0.4-5.4); Lymphocytes % (auto) 17.3 % (10.0-50.0); Mean Corpuscular Hgb Conc. 33.9 g/dL (32.0-36.0); Mean Corpuscular Volume 88.3 fL (80.0-100.0); Monocytes # (auto) 0.4 10 ^3/uL (0-1.3); Monocytes % (auto) 7.7 % (0.0-12.0); Neutrophils # (auto) 3.4 10 ^3/uL (1.6-8.6); Neutrophils % (auto) 73.9 % (37.0-80.0); Red Blood Cells 5.16 10^6/uL (4.5-5.90); Red Cell Distribution Width 13.7 % (11.8-14.3); White Blood Cell 4.6 10^3/uL (4.4-10.8)
[2021-01-01] MEDS: SODIUM CHLORIDE 0.9% 1,000 ML IV SCH (08:00)
[2021-01-01] MEDS ORDERED: LORazepam 2MG/ML-1ML VIAL IV PRN (08:00)
[2021-01-01 08:28] LABS: Albumin 2.6 g/dL (3.4-5.0); Calcium 7.5 mg/dL (8.5-10.1); Magnesium 2.3 mg/dL (1.6-2.6); Potassium 4.6 mmol/L (3.5-5.1)
[2021-01-01 08:32] LABS: Bilirubin, Total 0.7 mg/dL (0.2-1.0); Total Protein 6.6 g/dL (6.4-8.2)
[2021-01-01 09:00] VITALS: BP 105/69
[2021-01-01] MEDS ORDERED: ONDANSETRON HCL 4 MG/2 ML VIAL IV PRN (10:00)
[2021-01-01] MEDS: HEPARIN SODIUM (PORCINE) 5000 UNITS/ML 1ML VIAL SC SCH ×2 (10:00→21:54)
[2021-01-01] MEDS: MULTIPLE VITAMIN TAB PO SCH (10:44)
[2021-01-01] MEDS: FAMOTIDINE (10MG/ML) 2ML VL IV SCH ×3 (10:44→21:52)
[2021-01-01] MEDS: ZINC SULFATE 220mg CAP or TAB PO SCH (10:44)
[2021-01-01] MEDS: CHOLECALCIFEROL (VITD3) 2,000 UNIT CAP/TAB PO SCH (10:45)
[2021-01-01] MEDS: ASCORBIC ACID 1,000 MG TAB PO SCH (10:45)
[2021-01-01] MEDS: HYDROmorphone HCL 2 MG/ML VL IV PRN ×2 (10:46→17:08)
[2021-01-01] MEDS ORDERED: cefTRIAXone 1GM/50ML D5W 50 ML IV ONE (12:00)
[2021-01-01] MEDS ORDERED: REMDESIVIR PER PHARMACY 0 ML IV SCH (12:00)
[2021-01-01 12:39] VITALS: BP 115/75
[2021-01-01] MEDS ORDERED: REMDESIVIR 200 MG in NS 210ml LOADING DOSE ADULT IV ONE (15:00)
[2021-01-01 15:10] VITALS: BP 115/75
[2021-01-01 17:00] VITALS: BP_SYST 105; BP_SYST 119; BP_DIAS 81; BP_DIAS 82
[2021-01-01 22:00] VITALS: BP 119/83
[2021-01-01] MEDS ORDERED: BUDESONIDE (INHALATION) 180 MCG IH IN SCH (22:00)
[2021-01-02] MEDS: SODIUM CHLORIDE 0.9% 1,000 ML IV SCH (00:19)
[2021-01-02] MEDS: HYDROmorphone HCL 2 MG/ML VL IV PRN ×3 (04:37→20:36)
[2021-01-02 05:00] VITALS: BP 138/77
[2021-01-02 06:50] LABS: Basophils # (auto) 0 10 ^3/uL (0-0.2); Eosinophils # (auto) 0 10 ^3/uL (0-0.8); Hemoglobin 17.5 g/dL (13.5-17.5); Lymphocytes # (auto) 0.5 10 ^3/uL (0.4-5.4); Lymphocytes % (auto) 9.8 % (10.0-50.0); Mean Corpuscular Hemoglobin 30.3 pg (28.0-32.0); Mean Corpuscular Hgb Conc. 34.4 g/dL (32.0-36.0); Mean Corpuscular Volume 88.2 fL (80.0-100.0); Monocytes # (auto) 0.4 10 ^3/uL (0-1.3); Monocytes % (auto) 7.4 % (0.0-12.0); Neutrophils # (auto) 4.4 10 ^3/uL (1.6-8.6); Neutrophils % (auto) 82.8 % (37.0-80.0); Nucleated Red Blood Cells % 0.2 %; Red Blood Cells 5.78 10^6/uL (4.5-5.90); Red Cell Distribution Width 13.9 % (11.8-14.3); White Blood Cell 5.4 10^3/uL (4.4-10.8)
[2021-01-02 06:57] LABS: Albumin 2.6 g/dL (3.4-5.0); Calcium 8.1 mg/dL (8.5-10.1); Potassium 5.3 mmol/L (3.5-5.1)
[2021-01-02] MEDS: BUDESONIDE (INHALATION) 180 MCG IH IN SCH ×2 (07:19→21:13)
[2021-01-02] MEDS: ALBUTEROL SULF HFA 90MCG INH 200DOSE IN SCH ×3 (07:19→21:13)
[2021-01-02 07:39] LABS: BUN/Creatinine Ratio 21.1; Bilirubin, Total 0.6 mg/dL (0.2-1.0); CRP High Sensitivity 9.36 mg/dL (< 0.3); Total Protein 7.2 g/dL (6.4-8.2)
[2021-01-02 08:00] VITALS: BP 107/71
[2021-01-02] MEDS: cefTRIAXone 1GM/50ML D5W 50 ML IV SCH (08:11)
[2021-01-02] MEDS: FAMOTIDINE (10MG/ML) 2ML VL IV SCH (08:11)
[2021-01-02] MEDS: DexAMETHasone SOD PHOS 10MG/1ML VIAL INJ IV SCH (08:11)
[2021-01-02] MEDS: ZINC SULFATE 220mg CAP or TAB PO SCH (08:12)
[2021-01-02] MEDS: HEPARIN SODIUM (PORCINE) 5000 UNITS/ML 1ML VIAL SC SCH (08:12)
[2021-01-02] MEDS: ASCORBIC ACID 1,000 MG TAB PO SCH (08:12)
[2021-01-02] MEDS: CHOLECALCIFEROL (VITD3) 2,000 UNIT CAP/TAB PO SCH (08:12)
[2021-01-02] MEDS: MULTIPLE VITAMIN TAB PO SCH (08:12)
[2021-01-02] MEDS: AZITHROMYCIN 500MG/ 250ML 250 ML IV SCH (11:07)
[2021-01-02] MEDS ORDERED: SODIUM BICARB 50ML SYR 50 ML in SOD CHL 0.45% 1,000 ML IV SCH (11:30)
[2021-01-02 13:00] VITALS: BP 114/69
[2021-01-02] MEDS: REMDESIVIR 100mg 100 MG in SODIUM CHL 0.9% 230 ML IV SCH (15:06)
[2021-01-02 16:51] LABS: Cholesterol 123 mg/dL (< 200); HDL Cholesterol 31 mg/dL (40-59); LDL Cholesterol 80 mg/dL (< 100); Triglycerides 84 mg/dL (< 150)
[2021-01-02 16:59] VITALS: BP 122/72
[2021-01-02] MEDS: SODIUM BICARB 50ML SYR 50 ML in SOD CHL 0.45% 1,000 ML IV SCH (17:05)
[2021-01-02 22:00] VITALS: BP 121/75
[2021-01-02] MEDS ORDERED: ONDANSETRON HCL 4 MG/2 ML VIAL IV PRN (23:15)
[2021-01-03] MEDS: SODIUM BICARB 50ML SYR 50 ML in SOD CHL 0.45% 1,000 ML IV SCH ×2 (02:00→16:48)
[2021-01-03] MEDS: HYDROmorphone HCL 2 MG/ML VL IV PRN ×4 (04:25→21:02)
[2021-01-03 05:17] VITALS: BP 115/71
[2021-01-03] MEDS: ALBUTEROL SULF HFA 90MCG INH 200DOSE IN SCH ×2 (06:05→20:03)
[2021-01-03] MEDS: BUDESONIDE (INHALATION) 180 MCG IH IN SCH ×2 (06:05→20:03)
[2021-01-03 06:50] LABS: Basophils # (auto) 0 10 ^3/uL (0-0.2); Basophils % (auto) 0.1 % (0.0-2.0); Eosinophils # (auto) 0 10 ^3/uL (0-0.8); Hematocrit 46.6 % (41.0-53.0); Hemoglobin 16.1 g/dL (13.5-17.5); Lymphocytes # (auto) 0.5 10 ^3/uL (0.4-5.4); Lymphocytes % (auto) 6.5 % (10.0-50.0); Mean Corpuscular Hemoglobin 30.6 pg (28.0-32.0); Mean Corpuscular Hgb Conc. 34.6 g/dL (32.0-36.0); Mean Corpuscular Volume 88.5 fL (80.0-100.0); Monocytes # (auto) 0.5 10 ^3/uL (0-1.3); Monocytes % (auto) 6.6 % (0.0-12.0); Neutrophils % (auto) 86.8 % (37.0-80.0); Red Blood Cells 5.26 10^6/uL (4.5-5.90); Red Cell Distribution Width 13.4 % (11.8-14.3); White Blood Cell 6.9 10^3/uL (4.4-10.8)
[2021-01-03 07:10] LABS: Calcium 7.7 mg/dL (8.5-10.1); Potassium 4.3 mmol/L (3.5-5.1)
[2021-01-03 07:12] LABS: BUN/Creatinine Ratio 21.4
[2021-01-03 09:00] VITALS: BP 112/73
[2021-01-03] MEDS: DexAMETHasone SOD PHOS 10MG/1ML VIAL INJ IV SCH (09:55)
[2021-01-03] MEDS: cefTRIAXone 1GM/50ML D5W 50 ML IV SCH (09:55)
[2021-01-03] MEDS: MULTIPLE VITAMIN TAB PO SCH (09:56)
[2021-01-03] MEDS: ASCORBIC ACID 1,000 MG TAB PO SCH (09:56)
[2021-01-03] MEDS: CHOLECALCIFEROL (VITD3) 2,000 UNIT CAP/TAB PO SCH (09:56)
[2021-01-03] MEDS: ZINC SULFATE 220mg CAP or TAB PO SCH (09:56)
[2021-01-03] MEDS: PANTOPRAZOLE 40 MG/10 ML VIAL INJ IV SCH (09:56)
[2021-01-03] MEDS: ENOXAPARIN SOD 40 MG/0.4 ML SYRINGE SC SCH ×2 (09:57→10:00)
[2021-01-03] MEDS: AZITHROMYCIN 500MG/ 250ML 250 ML IV SCH (12:20)
[2021-01-03 13:00] VITALS: BP 119/68
[2021-01-03] MEDS: REMDESIVIR 100mg 100 MG in SODIUM CHL 0.9% 230 ML IV SCH (16:48)
[2021-01-03 17:00] VITALS: BP 118/74
[2021-01-03 22:00] VITALS: BP 125/88
[2021-01-04 05:00] VITALS: BP 128/58
[2021-01-04] MEDS: HYDROmorphone HCL 2 MG/ML VL IV PRN ×3 (05:45→20:01)
[2021-01-04] MEDS: SODIUM BICARB 50ML SYR 50 ML in SOD CHL 0.45% 1,000 ML IV SCH ×3 (05:46→20:15)
[2021-01-04 06:07] LABS: Basophils # (auto) 0 10 ^3/uL (0-0.2); Basophils % (auto) 0.1 % (0.0-2.0); Eosinophils # (auto) 0 10 ^3/uL (0-0.8); Hematocrit 43.3 % (41.0-53.0); Hemoglobin 14.9 g/dL (13.5-17.5); Lymphocytes # (auto) 0.4 10 ^3/uL (0.4-5.4); Lymphocytes % (auto) 7.6 % (10.0-50.0); Mean Corpuscular Hemoglobin 29.9 pg (28.0-32.0); Mean Corpuscular Hgb Conc. 34.4 g/dL (32.0-36.0); Mean Corpuscular Volume 87.1 fL (80.0-100.0); Monocytes # (auto) 0.5 10 ^3/uL (0-1.3); Monocytes % (auto) 8.7 % (0.0-12.0); Neutrophils # (auto) 4.5 10 ^3/uL (1.6-8.6); Neutrophils % (auto) 83.6 % (37.0-80.0); Nucleated Red Blood Cells % 0.1 %; Red Blood Cells 4.97 10^6/uL (4.5-5.90); Red Cell Distribution Width 13.9 % (11.8-14.3); White Blood Cell 5.4 10^3/uL (4.4-10.8)
[2021-01-04 06:29] LABS: Calcium 7.5 mg/dL (8.5-10.1); Potassium 4.1 mmol/L (3.5-5.1)
[2021-01-04] MEDS: ALBUTEROL SULF HFA 90MCG INH 200DOSE IN SCH ×3 (06:34→21:37)
[2021-01-04] MEDS: BUDESONIDE (INHALATION) 180 MCG IH IN SCH ×2 (06:34→21:36)
[2021-01-04 06:37] LABS: BUN/Creatinine Ratio 20.3
[2021-01-04 09:00] VITALS: BP 123/82
[2021-01-04] MEDS: ZINC SULFATE 220mg CAP or TAB PO SCH (09:50)
[2021-01-04] MEDS: cefTRIAXone 1GM/50ML D5W 50 ML IV SCH (09:50)
[2021-01-04] MEDS: ASCORBIC ACID 1,000 MG TAB PO SCH (09:50)
[2021-01-04] MEDS: PANTOPRAZOLE 40 MG/10 ML VIAL INJ IV SCH (09:50)
[2021-01-04] MEDS: DexAMETHasone SOD PHOS 10MG/1ML VIAL INJ IV SCH (09:50)
[2021-01-04] MEDS: MULTIPLE VITAMIN TAB PO SCH (09:50)
[2021-01-04] MEDS: CHOLECALCIFEROL (VITD3) 2,000 UNIT CAP/TAB PO SCH (09:51)
[2021-01-04] MEDS: ENOXAPARIN SOD 40 MG/0.4 ML SYRINGE SC SCH ×2 (09:51→10:00)
[2021-01-04] MEDS: AZITHROMYCIN 500MG/ 250ML 250 ML IV SCH (12:35)
[2021-01-04 13:00] VITALS: BP 121/72
[2021-01-04] MEDS: REMDESIVIR 100mg 100 MG in SODIUM CHL 0.9% 230 ML IV SCH ×2 (15:04→15:10)
[2021-01-04 16:04] VITALS: BP 121/72
[2021-01-04 17:00] VITALS: BP 138/81
[2021-01-04 22:00] VITALS: BP 133/79
[2021-01-05] MEDS: HYDROmorphone HCL 2 MG/ML VL IV PRN ×5 (03:14→22:47)
[2021-01-05 05:00] VITALS: BP 138/79
[2021-01-05] MEDS: SODIUM BICARB 50ML SYR 50 ML in SOD CHL 0.45% 1,000 ML IV SCH ×2 (05:17→18:26)
[2021-01-05 07:25] LABS: Basophils # (auto) 0 10 ^3/uL (0-0.2); Eosinophils # (auto) 0 10 ^3/uL (0-0.8); Hematocrit 44.2 % (41.0-53.0); Hemoglobin 15.1 g/dL (13.5-17.5); Lymphocytes # (auto) 0.5 10 ^3/uL (0.4-5.4); Lymphocytes % (auto) 7.7 % (10.0-50.0); Mean Corpuscular Hemoglobin 30.1 pg (28.0-32.0); Mean Corpuscular Hgb Conc. 34.2 g/dL (32.0-36.0); Mean Corpuscular Volume 87.8 fL (80.0-100.0); Monocytes # (auto) 0.5 10 ^3/uL (0-1.3); Monocytes % (auto) 7.4 % (0.0-12.0); Neutrophils # (auto) 5.6 10 ^3/uL (1.6-8.6); Neutrophils % (auto) 84.9 % (37.0-80.0); Red Blood Cells 5.03 10^6/uL (4.5-5.90); Red Cell Distribution Width 13.6 % (11.8-14.3); White Blood Cell 6.6 10^3/uL (4.4-10.8)
[2021-01-05 07:27] LABS: Albumin 2.3 g/dL (3.4-5.0); Calcium 7.5 mg/dL (8.5-10.1)
[2021-01-05] MEDS: BUDESONIDE (INHALATION) 180 MCG IH IN SCH ×2 (07:43→19:32)
[2021-01-05] MEDS: ALBUTEROL SULF HFA 90MCG INH 200DOSE IN SCH ×3 (07:44→19:32)
[2021-01-05 07:48] LABS: BUN/Creatinine Ratio 16.3; Bilirubin, Total 0.7 mg/dL (0.2-1.0); CRP High Sensitivity 5.34 mg/dL (< 0.3); Potassium 3.8 mmol/L (3.5-5.1); Total Protein 5.8 g/dL (6.4-8.2)
[2021-01-05] MEDS: cefTRIAXone 1GM/50ML D5W 50 ML IV SCH (08:33)
[2021-01-05] MEDS: DexAMETHasone SOD PHOS 10MG/1ML VIAL INJ IV SCH (08:47)
[2021-01-05] MEDS: AZITHROMYCIN 500MG/ 250ML 250 ML IV SCH (08:48)
[2021-01-05] MEDS: PANTOPRAZOLE 40 MG/10 ML VIAL INJ IV SCH (08:48)
[2021-01-05] MEDS: ZINC SULFATE 220mg CAP or TAB PO SCH (08:48)
[2021-01-05] MEDS: MULTIPLE VITAMIN TAB PO SCH (08:48)
[2021-01-05] MEDS: ASCORBIC ACID 1,000 MG TAB PO SCH (08:48)
[2021-01-05] MEDS: CHOLECALCIFEROL (VITD3) 2,000 UNIT CAP/TAB PO SCH (08:49)
[2021-01-05] MEDS: ENOXAPARIN SOD 40 MG/0.4 ML SYRINGE SC SCH (08:49)
[2021-01-05 08:58] VITALS: BP 141/82
[2021-01-05] MEDS: ALPRAZolam 0.25 MG TAB PO SCH ×3 (10:15→22:00)
[2021-01-05 13:00] VITALS: BP 133/77
[2021-01-05] MEDS: REMDESIVIR 100mg 100 MG in SODIUM CHL 0.9% 230 ML IV SCH (15:00)
[2021-01-05 17:00] VITALS: BP 148/95
[2021-01-05 22:00] VITALS: BP 126/73
[2021-01-06 05:00] VITALS: BP 123/68
[2021-01-06] MEDS: SODIUM BICARB 50ML SYR 50 ML in SOD CHL 0.45% 1,000 ML IV SCH ×2 (05:36→14:15)
[2021-01-06] MEDS: ALBUTEROL SULF HFA 90MCG INH 200DOSE IN SCH ×3 (07:00→19:20)
[2021-01-06] MEDS: BUDESONIDE (INHALATION) 180 MCG IH IN SCH ×2 (07:01→19:20)
[2021-01-06] MEDS: cefTRIAXone 1GM/50ML D5W 50 ML IV SCH (08:40)
[2021-01-06] MEDS: HYDROmorphone HCL 2 MG/ML VL IV PRN ×2 (08:40→22:23)
[2021-01-06] MEDS: CHOLECALCIFEROL (VITD3) 2,000 UNIT CAP/TAB PO SCH (08:40)
[2021-01-06] MEDS: PANTOPRAZOLE 40 MG/10 ML VIAL INJ IV SCH (08:41)
[2021-01-06] MEDS: DexAMETHasone SOD PHOS 10MG/1ML VIAL INJ IV SCH (08:41)
[2021-01-06] MEDS: ZINC SULFATE 220mg CAP or TAB PO SCH (08:41)
[2021-01-06] MEDS: ASCORBIC ACID 1,000 MG TAB PO SCH (08:41)
[2021-01-06] MEDS: ENOXAPARIN SOD 40 MG/0.4 ML SYRINGE SC SCH ×3 (08:41→10:00)
[2021-01-06] MEDS: MULTIPLE VITAMIN TAB PO SCH (08:41)
[2021-01-06 09:00] VITALS: BP 137/84
[2021-01-06] MEDS: ALPRAZolam 0.25 MG TAB PO SCH ×2 (09:28→22:00)
[2021-01-06] MEDS: AZITHROMYCIN 500MG/ 250ML 250 ML IV SCH (10:00)
[2021-01-06 10:35] LABS: Hepatitis B Surface Antibody Negative
[2021-01-06 11:14] LABS: Hepatitis A Total Antibody Negative
[2021-01-06 13:00] VITALS: BP 148/83
[2021-01-06 13:27] LABS: Basophils # (auto) 0 10 ^3/uL (0-0.2); Basophils % (auto) 0.2 % (0.0-2.0); Eosinophils # (auto) 0 10 ^3/uL (0-0.8); Hematocrit 44.6 % (41.0-53.0); Hemoglobin 15.2 g/dL (13.5-17.5); Lymphocytes # (auto) 0.5 10 ^3/uL (0.4-5.4); Lymphocytes % (auto) 5.6 % (10.0-50.0); Mean Corpuscular Hemoglobin 29.9 pg (28.0-32.0); Mean Corpuscular Hgb Conc. 34.1 g/dL (32.0-36.0); Mean Corpuscular Volume 87.7 fL (80.0-100.0); Monocytes # (auto) 0.7 10 ^3/uL (0-1.3); Monocytes % (auto) 8.1 % (0.0-12.0); Neutrophils % (auto) 86.1 % (37.0-80.0); Nucleated Red Blood Cells % 0.2 %; Red Blood Cells 5.08 10^6/uL (4.5-5.90); Red Cell Distribution Width 13.6 % (11.8-14.3); White Blood Cell 8.1 10^3/uL (4.4-10.8)
[2021-01-06 13:31] LABS: Hepatitis C Antibody Negative (Negative)
[2021-01-06] MEDS ORDERED: DEXA6TAB6 PO ×2 (14:13)
[2021-01-06] MEDS ORDERED: ASCO10003 PO ×2 (14:13)
[2021-01-06] MEDS ORDERED: ALBUAER3 IN ×2 (14:13)
[2021-01-06] MEDS ORDERED: CHOL1CAP47 PO ×2 (14:13)
[2021-01-06 14:54] LABS: BUN/Creatinine Ratio 18.9; Calcium 7.7 mg/dL (8.5-10.1); Potassium 4.3 mmol/L (3.5-5.1)
[2021-01-06 17:00] VITALS: BP 140/86
[2021-01-06 22:00] VITALS: BP 135/83
[2021-01-07] MEDS: SODIUM BICARB 50ML SYR 50 ML in SOD CHL 0.45% 1,000 ML IV SCH ×2 (00:45→11:15)
[2021-01-07 05:00] VITALS: BP 151/81
[2021-01-07] MEDS: HYDROmorphone HCL 2 MG/ML VL IV PRN (09:00)
[2021-01-07] MEDS: cefTRIAXone 1GM/50ML D5W 50 ML IV SCH (09:00)
[2021-01-07 09:16] VITALS: BP 131/81
[2021-01-07] MEDS: BUDESONIDE (INHALATION) 180 MCG IH IN SCH (09:45)
[2021-01-07] MEDS: ALBUTEROL SULF HFA 90MCG INH 200DOSE IN SCH (09:45)
[2021-01-07] MEDS: ALPRAZolam 0.25 MG TAB PO SCH (10:00)
[2021-01-07] MEDS: ENOXAPARIN SOD 40 MG/0.4 ML SYRINGE SC SCH (10:00)
[2021-01-07] MEDS: PANTOPRAZOLE 40 MG/10 ML VIAL INJ IV SCH (10:00)
[2021-01-07] MEDS: DexAMETHasone SOD PHOS 10MG/1ML VIAL INJ IV SCH (11:40)
[2021-01-07] MEDS: ZINC SULFATE 220mg CAP or TAB PO SCH (11:40)
[2021-01-07] MEDS: CHOLECALCIFEROL (VITD3) 2,000 UNIT CAP/TAB PO SCH (11:43)
[2021-01-07] MEDS: MULTIPLE VITAMIN TAB PO SCH (11:44)
[2021-01-07] MEDS: ASCORBIC ACID 1,000 MG TAB PO SCH (11:44)
[2021-01-07 12:56] VITALS: BP 134/87
== END 2021-01-07 13:35 | disposition hospice, home (50) | DRG 137 ==
LOC: EDBD 01:24 → ER 01:24 → TELE 01:25 → TELE-EAST 09:21 → UNDODISIN 01-06 18:40
PROVIDERS: ADMIT Nurse Practitioner Family; ATTEND Internal Medicine
PROC: XW033E5 Introduction of Remdesivir Anti-infective into Peripheral Vein, Percutaneous Approach, New Technology Group 5 (ICD-10-PCS; principal; 2021-01-02)
DX: U07.1 COVID-19 (principal); J96.01 Acute respiratory failure with hypoxia; J12.82 Pneumonia due to coronavirus disease 2019; N17.0 Acute kidney failure with tubular necrosis; K85.90 Acute pancreatitis without necrosis or infection, unspecified; E87.1 Hypo-osmolality and hyponatremia; D69.6 Thrombocytopenia, unspecified; C85.90 Non-Hodgkin lymphoma, unspecified, unspecified site; E87.5 Hyperkalemia; R79.89 Other specified abnormal findings of blood chemistry; R59.0 Localized enlarged lymph nodes; F41.9 Anxiety disorder, unspecified; K21.9 Gastro-esophageal reflux disease without esophagitis; R59.1 Generalized enlarged lymph nodes; Z82.49 Family history of ischemic heart disease and other diseases of the circulatory system
CPT/HCPCS: 36415; 36600; 71045; 71275; 74176; 80048; 80053; 80061; 82150; 82728; 82805; 83605; 83615; 83690; 83735; 84484; 85025; 85379; 85610; 85730; 86141; 86704; 86706; 86708; 86803; 87040; 87340; 87426; 93005; 93970; 94640; C9113; G0378; J0696; J1100; J2405; J3490

== ENCOUNTER 2021-01-10 18:35 | Emergency (ER) | payer MEDICAID ==
[~2021-01-10] VITALS: Ht 172.7 cm; Wt 76.2 kg
[~2021-01-10 18:35] MED LIST changes: +ALBUAER3 IN; +ASCO10003 PO; +CHOL1CAP47 PO; +DEXA6TAB6 PO
[2021-01-10 19:21] VITALS: BP 156/92
== END 2021-01-10 20:12 | disposition left against medical advice (07) ==
LOC: EDBD 18:35 → ER 19:13
DX: R55 Syncope and collapse (principal); R06.02 Shortness of breath; R53.1 Weakness; Z53.21 Procedure and treatment not carried out due to patient leaving prior to being seen by health care provider
CPT/HCPCS: 71045